=== PATIENT | female | born 1960 | race Caucasian/White ===

== ENCOUNTER 2021-09-07 23:12 | Emergency (ER) | payer OTHER ==
[~2021-09-07] VITALS: Ht 162.6 cm; Wt 90.7 kg
[~2021-09-07 23:12] MED LIST: ASPIR 8181 MG PO; ATORVASTATIN CA40 MG PO; CIPRO500 MG PO; DESYREL150 MG PO; FEMARA2.5 MG PO; FLAGYL500 M1 PO; HYDROCODON-ACE1 EAC7 PO; HYDROCODONE-APA1 TA1 PO; ONDANSETRON ODT4 MG PO; SYNTHROID75 MCG PO; VENLAFAXINE HCL25 MG PO
[2021-09-08] MEDS ORDERED: TRAMADOL 50 MG50 MG PO (01:46)
[2021-09-08 02:28] VITALS: BP 91/57
== END 2021-09-08 02:20 | disposition home or self-care (01) ==
LOC: ER 23:12
DX: M25.531 Pain in right wrist (principal); E03.9 Hypothyroidism, unspecified; R22.31 Localized swelling, mass and lump, right upper limb; E66.9 Obesity, unspecified; Z98.890 Other specified postprocedural states; W18.39XA Other fall on same level, initial encounter; Y93.89 Activity, other specified; Y92.89 Other specified places as the place of occurrence of the external cause; Y99.8 Other external cause status